=== PATIENT | female | born 2000 | race Caucasian/White ===

== ENCOUNTER 2025-02-16 10:43 | Outpatient (AMB) | payer BC, SELFPAY ==
--- OUTSIDE RECORDS SUMMARY | 2025-02-07 10:15 | XMS_ITS ---
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
--- NOTE | 2025-02-16 10:44 | MHC.OFFVIS ---
Vital Signs 02/16/25 10:47 Height 5 ft 4 in Weight 245 lb 13.047 oz BMI 42.2 BP 122/80 Blood Pressure Location Lt brachial Position Sitting Pulse 88 Pulse Source Pulse Oximeter Pulse Oximetry (%) 99 Oxygen Delivery Method Room Air Intake Visit Reasons: Sleep apnea Washer Off Required: No Accompanied by: Self / Same As Patient Allergies doxycycline Allergy (Intermediate, Verified 02/16/25 10:48) Hives HPI Comments Details: The patient is here for pulmonary evaluation. The patient is a 24 year woman presenting with significant daytime drowsiness and headaches. The patient was in his usual state health until back in September when his symptoms got worse. She did have a elevated Dexter score of 11/24. Significant headaches. Moderate severity. Typically in the morning. In addition to that she had been noticing increased breathlessness with increased heart rate. The patient was referred to outpatient pulmonary. The patient did have a home sleep study. She did have significant sleep apnea. She did have a hard time with a home sleep study that did feel like she slept much. Still had a AHI of approximately 14 events an hour. The patient also had significant hypoxia down to 88% for more than 20 minutes and she went as low as 80%. And she also had elevated heart rate up to 112 beats per minute with an average of 92 which is significantly high for the average while we are sleeping. At this point the patient does have significant symptoms and needs to start APAP therapy soon. She was referred to us to we can expedite the process. Right now I did call to a local [employer] company in order to do so. She will start APAP as soon as possible. She will return in 3-4 months to see her progress. If he has any questions or concerns while she is getting used to the APAP she can always call so we can address any issues. In the meantime we did go for brief walking oximetry the heart rate did elevate to about 108 beats per minute with minimal activity. Oxygen was stable. Her breath sounds are normal. Will see how she response to APAP therapy. If she continues to be symptomatic with shortness of breath and tachycardia she can always call so we can address those symptoms earlier. [facility] Medical History (Updated 02/16/25 @ 11:21 by Pieter Reynolds MD) Dyspnea Tachycardia HUGO (obstructive sleep apnea) Social History (Updated 02/16/25 @ 10:50 by Rahel Chang CMA) Patient Tobacco Use Status: Never used Tobacco Review of Systems Const Reports daytime sleepiness, Reports difficulty sleeping, Reports headache(s), Reports snoring and Reports stops breathing during sleep Eyes Reports no additional complaints ENT Reports headache(s) Card Reports palpitations and Reports dyspnea on exertion Resp Reports dyspnea on exertion, Reports snoring and Denies wheezing GI Reports no additional complaints Skin/Breast Denies rash Neuro Reports no additional complaints and Reports headache(s) Endo Reports palpitations Ander/Lymph Reports no additional complaints Aller/Immun Denies wheezing Physical Exam Vital Signs: Last Vital Signs Pulse 88 02/16/25 10:47 BP 122/80 02/16/25 10:47 Pulse Ox 99 02/16/25 10:47 Oxygen Delivery Method Room Air 02/16/25 10:47 BMI result Body Mass Index 42.2 Const General: comfortable HEENT Head: Yes normocephalic Neck Neck: Yes supple Chest Chest palpation & inspection: normal inspection of the chest Resp Effort & Inspection: normal respiratory effort Auscultation: clear to auscultation bilaterally Cardio Rate: tachycardic Rhythm: regular rhythm Heart sounds: S1 normal heart sound present and S2 normal heart sound present GI Palpation (GI): Soft to palpation Skin General skin exam: no rashes or lesions noted Extrem General: Yes no clubbing, cyanosis or edema Assessment & Plan Assessment & Plan (1) HUGO (obstructive sleep apnea): Code(s): G47.33 - Obstructive sleep apnea (adult) (pediatric) Category: Medical (2) Tachycardia: Code(s): R00.0 - Tachycardia, unspecified Category: Medical (3) Dyspnea: Code(s): R06.00 - Dyspnea, unspecified Category: Medical Qualifiers: Dyspnea type: dyspnea on exertion Qualified Code(s): R06.09 - Other forms of dyspnea Plan Start APAP -Regional Reassess HR during the next visit and should call if it worsens or no better on while on the APAP F/U 3-4 months Coding Level of Care Code New Pt Level 4 (40017) Diagnoses HUGO (obstructive sleep apnea) G47.33 Tachycardia R00.0 Dyspnea on exertion R06.09 Dyspnea type: dyspnea on exertion Time Spent (min) 35
[2025-02-16 10:47] VITALS: BP 122/80; PULSE 88; O2SAT 99; BMI 42.2
--- OUTSIDE RECORDS SUMMARY | 2025-02-16 11:23 | XMS_ITS ---
[facility] Name [facility] Organization Unknown Allergies Allergen Reaction Severity Comment Documented Date Source Statu s DOXYCYCLINE RASH [facility]P Problems Problem Status Onset Date Problem Type Date of Resoluti on Source Increased body mass index active 2021-01-16 ProblemAct [facility]LPVP Migraine without aura active 2017-05-13 ProblemAct [facility]LPVP Irritable bowel syndrome active 2021-01-16 ProblemAct [facility]P Altered bowel function active 2020-01-16 ProblemAct [facility]P Gluten sensitivity active 2021-01-16 ProblemAct [facility]P Allergy to drug active 2018-07-[address] [facility]P Acne active ProblemAct [facility] Pityriasis rosea active 2022-07-15 ProblemAct C THLPVP Anxiety state active 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
--- OUTSIDE RECORDS SUMMARY | 2025-02-16 11:23 | XMS_ITS | Data Portability ---
Author Organization [place] - [facility], [facility] Address [address] [place] [address] Assessment Encounter Date Assessment Date Assessment LastModified by Organization Details LastModified Time 01/16/2021 01/16/2021 20 yo female ritesh espino nl Development, AG given, consented to Hep A vaccine but out of stock so will RTO 2 wks, declined Bexsero, -SCAD; BMI 91st% - diet/exercise, has made significant improvements in her diet and exercise regimen and has lost significant wt, no concern for eating disorder, has criminal intelligence specialist giving her help and sees GI as well; Gluten sensitivity vs celiac - had TTG of 7, seen by GI, opted to not get endoscopy and to try gf diet and feels MUCH better gf, h/a's stopped as well as loss of hair as well, will continue; IBS - as well, followed by GI, failed all meds tried, better with gf diet kcamera Not available 01/16/2021 16:41:56 03/05/2022 03/05/2022 21 yo female wit h nl Development, AG/VC given, will RTO shot only Hep A #2, +A, -SCD; BMI 95th% - diet/exercise, 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 mate did not help so stopped seeing her, now seeing blindstitch lapel padder and has been on supplements and told she had hypothyroidism (+FH same), getting repeat labs in Apr by blindstitch lapel padder; GI - gluten sensitivity vs celiac, hx TTG 7 and now <1 without gluten in diet, removal was definitely very helpful, also has dx IBS from GI and has new blindstitch lapel padder who has added iron/other supplements and she is feeling better overall; Fatigue - gets >8 hrs of sleep per night and still tired, told by celina low Fe and thyroid dz which could both affect energy, will f/u with celina for upcoming repeat labs and keep me updated; Abnl TSH - mildly elevated, +FH Farhat's, taking supplement for this from celina, has repeat labs soon and gave her list of TSH/free T4 and thyroid antibodies to be sure done as well; Acne - topical meds only, blindstitch lapel padder stopped her OCPs and now having mild acne back/chest, has upcoming labs for ?PCOS and discussed that Rx for PCOS is OCPs; Anemia - nl H/H but low ferritin, on iron supplement; Anxiety - restarted with her therapist; Transitioning - discussed that she will need Adult MD, will see her for f/u in 6 mths but she needs to start looking for Adult MD now kcamera Not available 03/05/2022 17:55:29 07/15/2022 07/15/2022 Pityriasis rosea - viral, sx care, expected course kcamera Not available 07/15/2022 18:21:59 Plan of Treatment Reminders Order Date Submit Date Provider Last Modified By Organization Details Last Modified Time Details Appointments None record ed. Lab None record ed. Referral None record ed. Procedures None record ed. Surgeries None record ed. Imaging None record ed. Medication Orders None record ed. Patient TargetsNo targets recorded. Patient Instructions Encounter Date Encounter Id Patient Instructions Last Modified By Organization Details Last Modified Time 01/16/2021 [id number] program - 5 fruits & veggies kcamera Not available 01/16/2021 14:24:16 [id number] program - 1 hour of exercise kcamera Not available 01/16/2021 14:24:16 patient health questionnaire depression assessment* kcamera Not available 01/16/2021 14:27:41 immunization: wh at you need to know kcamera Not available 01/16/2021 14:24:17 03/05/2022 [id number] program - 5 fruits & veggies kcamera Not available 03/05/2022 14:25:26 [id number] program - 1 hour of exercise kcamera Not available 03/05/2022 14:25:26 patient health questionnaire depression assessment* kcamera Not available 03/05/2022 14:30:21 immunization: wh at you need to know kcamera Not available 03/05/2022 14:25:26 We have mian del rio that it is now time for the patient to work on selecting a new adult medicine provider. [email or web address] Not available 03/04/2022 10:35:40 Reason for Referral None Reported. Results Created Date Observation Date Name Description Value Unit Range Abnormal Flag Note LastModifiedBy Organization Detail LastModifiedTime 01/17/20 21 01/16/2021 patie nt healt h quest ionna coleen depre ssion asses sment * PHQ-9 negati ve Not Available [facility] [address] [place] [address], [phone], 01/16/2021 13:00:11 03/05/20 22 03/05/2022 patie nt healt h quest ionna coleen depre ssion asses sment * PHQ-9 negati ve Not Available [address], [phone], 03/04/2022 10:35:58 Result Notes None recorded. Problems Name Problem SNOMED Code Status Onset Date Resolution Date Notes Provider Name and Address Organization Details Recorded Time Active or passive immuniza tion Completed 04/17/2013 Rimma Riley MD [address] [place] [address], [phone], [facility] 6 10:30:04 Administ ration of diphther ia, pertussi s, and tetanus vaccine Completed 04/17/2013 Rimma Riley MD [address] [place] [address], [phone], [facility] 6 10:30:04 Pneumoni a [id number] Completed 04/17/2013 Rimma Riley MD [address] [place] [address], [address], [facility] 6 10:30:03 Foot pain 01488092 Completed 11/23/2013 Rimma Riley MD [address] [place] [address], [address], [facility] 6 10:30:03 Upper respirat ory infectio n 83986278 Completed 11/23/2013 Rimma Riley MD [address] [facility] [place], [address], [facility] 6 10:30:03 Sinusiti s 88982267 Completed 11/23/2013 Rimma Riley MD [address] [place], [address], [facility] 6 10:30:03 Concussi on Completed 11/23/2013 Rimma Riley MD [address], 3, [facility] 6 10:30:03 Renal impairme nt 943283320 Completed 05/08/2014 Rimma Riley MD [address] [place], [address], [facility] 6 10:30:03 Upper respirat ory infectio n 11423117 Completed 05/08/2014 Rimma Riley MD [address] [place], [address], [facility] 6 10:30:03 Pneumoni a 756043390 Completed 05/13/2015 Rimma Rliey MD [address] [place], [address], [facility] 6 10:30:03 Foot pain 63707462 Completed 05/13/2015 Rimma Riley MD [address] [place], [place] [address] [place], [address], [facility] 6 10:30:03 Thumb injury 122919148 Completed 05/13/2015 Rimma Riley MD [address] [place] [address] [place], [address], [facility] 6 10:30:03 Excessiv e weight gain 625964773 Completed 10/14/2015 Rimma Riley MD [address] [place] [address] [place], [address], [facility] 6 10:30:04 Abnormal weight 52493312 Completed 05/18/2016 Rimma Riley MD [address] [place] [address] [place], [address], [facility] 6 09:22:21 Migraine without aura 79369444 Active 2016 improved with gf diet Amanda Johnson MD [address] [place] [address] [place], [address], [facility] 1 16:39:12 Allergy to drug 744788166 Active 2017 rash w/ brenday Rimma Riley MD [address] [place] [address] [place], [address], [facility] 8 19:18:45 Childhoo d obesity 542260369 Completed 201901/16/2021 Amanda Johnson MD [address] [place] [address] [place], [address], [facility] 1 16:38:39 Nausea 133682120 Completed 201901/16/2021 Amanda Johnson MD [address] [place] [address] [place], [address], [facility] 1 16:39:18 Loss of hair 354424336 Active 2019 improved when started gf diet Amanda Johnson MD [address] [place] [address] [place], [address], [facility] 1 16:39:00 Altered bowel function 20016872 Active 2019 both diarrhea/ constipat ion, ?IBS; possible celiac with TTG 7 02/2020, seeing GI - all sxs improved by going gluten free except constipat ion, added Linzess but no help; GF diet has helped the most 2020 Amanda Johnson MD [address] [place] [address] [address] [place], [address], [facility] 1 16:38:31 SARS-CoV -2 Completed 201901/16/2021 Amanda Johnson MD [address] [facility], [place], [address], [facility] 1 16:39:38 Irritabl e bowel syndrome 24099869 Active 2020 Amanda Johnson MD [address] [facility], [place], [address], [facility] 1 16:41:56 Gluten sensitiv ity 383299948 Active 2020 Amanda Johnson MD [address] [facility], [place], [address], [facility] 1 16:41:57 Increase d body mass index 41907092 Active 2020 Amanda Johnson MD [address] [facility], [place], [address], [facility] 1 16:42:01 Thor manning 86227046 Active 2021 Amanda Johnson MD [address] [facility], [place], [address], [facility] 2 14:26:52 Separati on anxiety 443361270 Completed 04/21/2012 Rimma Riley MD [address] [facility], [place], [address], [facility] 6 10:30:03 Eruption 969759328 Completed 200807/21/2009 Rimma Riley MD [address] [facility], [place], [address], [facility] 6 10:30:03 Viral disease 87243141 Completed 200807/21/2009 Rimma Riley MD [address] [place] [address], [place], [address], [facility] 6 10:30:03 Disorder of thyroid gland 37890690 Completed 06/29/2011 Rimma Riley MD [address] [facility], [place], [address], [facility] 6 10:30:03 Seborrhe a Completed 06/29/2011 Rimma Riley MD [address] [place], [address], [facility] 6 10:30:03 Thyroidi tis 78646683 Completed 05/08/2014 Rimma Riley MD [address] [place], [address], [facility] 6 10:30:03 Thyroidi tis 82006116 Completed 04/19/2012 Rimma Riley MD [facility] [place], [address], [facility] 6 10:30:03 Thyroidi tis 27370953 Completed 06/29/2011 Rimma Riley MD [address] [facility] [place], [address], [facility] 6 10:30:03 Allergic rhinitis 35173386 Completed 200804/21/2012 Rimma Riley MD [address] [place], [address], [facility] 6 10:30:03 Acute pharyngi tis 931791214 Completed 200607/21/2009 Rimma Riley MD [address] [place] [address] [place], [address], [facility] 6 10:30:03 Anxiety state 548144922 Active improved 01/2020 Amanda Johnson MD [address] [place], [address], [facility] 0 12:35:53 Anxiety state 334999787 Completed 06/29/2011 Amanda Johnson MD [address] [facility] [place], [address], [facility] 0 12:35:53 Impetigo 29838174 Completed 06/29/2011 Rimma Riley MD [address] [place], [place] [address], [address], [facility] 6 10:30:03 Precocio us sexual developm ent Completed 06/29/2011 Rimma Riley MD [facility] [place], [address], [facility] 6 10:30:03 Obesity 067772431 Completed 05/08/2014 Rimma Riley MD [address] [place], [place] [address], [address], [facility] 6 10:30:03 Acute sinusiti s 13566620 Completed 01/21/2012 Rimma Riley MD [address] [place] [address] [address] [place] [place], [address], [facility] 6 10:30:03 Acute upper respirat ory infectio n 07906779 Completed 200607/21/2009 Rimma Riley MD [address] [place] [address] [place], [address], [facility] 6 10:30:03 Acute conjunct ivitis 99473175 Completed 200807/21/2009 Rimma Riley MD [address] [place] [address] [place], [address], [facility] 6 10:30:03 Otalgia 58622340 Completed 06/29/2011 Rimma Riley MD [address] [place], [place] [address], [address], [facility] 6 10:30:03 Increase d body mass index 46796012 Completed 01/16/2020 Amanda Johnson MD [address] [place] [address] [address] [place], [address], [facility] 1 16:42:01 Abnormal weight gain 525771922 Completed 04/19/2012 Rimma Riley MD [address] [place] [address] [place], [address], [facility] 6 10:30:03 Abnormal weight gain 737348955 Completed 06/29/2011 Rimma Riley MD [address] [facility], [place], [address], [facility] 6 10:30:03 Acne 17182476 Active derm & BCPS 2016, stopped OCPs 01/2020 Amanda Johnson MD [address] [facility], [place], [address], [facility] 0 12:35:08 Vaginiti s and vulvovag initis Completed 06/29/2011 Rimma Riley MD [address] [facility], [place], [address], [facility] 6 10:30:03 Notes:BMI labs done 2015 * * HGb 2018 Problem Notes None recorded. Medical Equipment None Reported. Allergies Allergen ID Allergen Name Allergen Category Reaction Reaction Severity Criticality Documentation Date Start Date Code Code System Note Provider Name and Address Organization Details Recorded Time 30174 doxycycli ne Not available rash Not available Not available 12/11/2016 3640 RxNorm Rimma Riley MD [address] [facility], [place], [address], [facility] 7 17:26:33 Medications Name Sig Start Date Stop Date Status Note LastModified by Organization Details LastModified Time tretinoin 0.1 % topical cream 09/30 completed Not Available Not Available Not Available amoxicillin 500 mg capsule TAKE 1 C PO QAM AND QPM WITH FOOD 12/11 completed Not Available Not Available Not Available doxycycline hyclate 100 mg capsule TAKE 1 C PO QAM AND QPM WITH FOOD AND LARGE GLASS OF WATER DIRECTED 12/11 completed Not Available Not Available Not Available azithromyci n 250 mg tablet 2 tabs the 1st day then 1 tab each day for 4 days 02/18 completed Not Available Not Available Not Available tretinoin 0.025 % topical cream APPLY PEA SIZED AMOUNT TO FACE EVERY OTHER NIGHT FOR ACNE WORKING UP TO EVERY NIGHT TOLERATED FOLLOW WITH MOISTURIZ ER 05/22 completed Not Available Not Available Not Available tretinoin 0.05 % topical cream 09/30 completed Not Available Not Available Not Available sulfamethox azole 800 mg-trimetho prim 160 mg tablet TK 1 T PO Q 12 H FOR 10 DAYS 12/11 completed Not Available Not Available Not Available bupropion HCl SR 100 mg tablet,12 hr sustained-r elease active Not Available Not Available Not Available lidocaine-p rilocaine 2.5 %-2.5 % topical cream APPLY A THICK LAYER DIRECTED ONE HOUR AFTER VENAPUNCT URE active Not Available Not Available No t Available adapalene 0.1 % topical cream APPLY A PEA SIZED AMOUNT TO FACE FOR ACNE STARTING EVERY OTHER NIGHT WORKING UP TO EVERY NIGHT AT BEDTIME DISCONTIN UE IF YOU BECOME 03/31 completed Not Available Not Available Not Available amoxicillin 250 mg chewable tablet CHEW 2 TABLETS PO QAM AND QPM WITH FOOD 03/31 completed Not Available Not Available Not Available amoxicillin 875 mg tablet G ROX 1 T PO Q 12 H FOR 14 DAYS active Not Available Not Available No t Available amoxicillin 400 mg/5 mL oral suspension Take 2 tsp twice a day by oral route for 10 days. 07/23 completed Not Available Not Available Not Available mupirocin 2 % topical ointment Apply a small amount to the affected area by topical route 3 times per day active Not Available Not Available No t Available norethindro ne acetate 1 mg-ethinyl estradiol 20 mcg tablet TAKE 1 TABLET BY MOUTH EVERY DAY 03/05 completed Not Available Not Available Not Available Transderm-S engraver copperplate 1 mg over 3 days transdermal patch apply 1 patch q3 days prn; Start: >4h before event; do not cut patch 06/09 completed Not Available Not Available Not Available sumatriptan 20 mg/actuatio n nasal spray PLACE 1 SPRAY IN 1 NOSTRIL PRF MIGRAINE. MAY REPEAT IN 2 H IF NEEDED 11/06 completed Not Available Not Available Not Available Zoloft 25 mg tablet Take 1 tablet every day by oral route. active Not Available Not Available No t Available cefdinir 300 mg capsule 06/11 completed Not Available Not Available Not Available sertraline 50 mg tablet TAKE 1 AND TABLETS PO QD active Not Available Not Available No t Available dicyclomine 10 mg capsule TK 1 C PO TID PRN 03/05 completed Not Available Not Available Not Available Augmentin 500 mg-125 mg tablet Take 1 tablet 3 times a day by oral route for 10 days. 2010 active Not Available Not Available Not Avai lable clindamycin 1 % lotion APPLY TOPICALLY TO CHEST QAM AND QPM FOR OUTBREAKS 12/11 completed Not Available Not Available Not Available bupropion HCl XL 150 mg 24 hr tablet, extended release active Not Available Not Available Not Available Tri-Sprinte c (28) 0.18 mg(7)/0.215 mg(7)/0.25 mg(7)-0.035 mg tablet Take 1 tablet every day by oral route for 28 days. 01/15 completed Not Available Not Available Not Available Zoloft 75 mg per day active Not Available Not Available No t Available multivitami n active QD Not Available Not Available Not Available clindamycin 1.2 % (1 % base)-benzo yl peroxide 5 % topical gel LILLIAN A PEA SIZED AMOUNT TO FACE QAM FOR ACNE. MAY STAIN CLOTHING 09/30 completed Not Available Not Available Not Available Ludent Fluoride 1 mg fluoride (2.2 mg sodium fluoride) chewable tablet TK 1 T PO QD 12/11 completed Not Available Not Available Not Available Lo Loestrin Fe 1 mg-10 mcg (24)/10 mcg (2) tablet 01/15 completed Not Available Not Available Not Available Ovace Plus 9.8 % lotion 03/31 completed Not Available Not Available Not Available Finacea 15 % topical foam 09/30 completed Not Available Not Available Not Available Flucelvax Quad (PF) 60 mcg (15 mcg x 4)/0.5 mL IM syringe ADM 0.5ML IM UTD 01/16 completed Not Available Not Available Not Available Vitals Date Recorded Body height Body mass index (BMI) Body mass index (BMI) [Percentile] Per age and sex Body weight Systolic And Diastolic Provider Name and Address Organization Details Last Updated DateTime 01/16/2021 162.56 cm 28.7 kg/m2 91 % 80507.6 4 g 106/64 mm[Hg] Juliet Harrison R.N. [place] - [facility] 14:07:08 Date Recorded Body height Systolic And Diastolic Provider Name and Address Organization Details Last Updated DateTime 03/05/2022 162.56 cm 112/70 mm[Hg] Renetta De Leon R.N. [facility] 03/05/2022 14:01:30 Date Recorded Body mass index (BMI) Body mass index (BMI) [Percentile] Per age and sex Body weight Provider Name and Address Organization Details Last Updated DateTime 03/05/2022 32.4 kg/m2 95 % 58145.96 g Yamilex Giron R.N. [facility] 03/05/2022 14:09:17 Social History Question Answer Notes LastModified by Organizat ion Details LastModified Time Tobacco Smoking Status Never Smoker Heathermitchel Duffycammy hunt [facility] 09/01/2012 16:32:55 Have There Been Any Changes To Your Family Or Social Situation? No Information not available 05/26/2017 Hard Of Hearing Or Deaf In One Or Both Ears? No Information not available 05/26/2017 Legally Blind In One Or Both Eyes? No Information not available 05/26/2017 Parent's Marital Status 05 Information not available 06/14/2011 Home Situation Mother --and Step Dad 05 Information not available 06/14/2011 Siblings Renetta (F 1/2 Sib) 01/05/10 05 Information not available 06/14/2011 Year In School College College [facility] Studies Major fall Information not available 01/16/2021 Parent's Name Yuliya Wright --mom Works At Home 05 Information not available 06/14/2011 Parent's Name Toan Nunez Sees Dad Weekly & Weekends (has Friend Who Lives W/him ) 05 Information not available 06/14/2011 DSS/DCF Custody No Information not available 05/26/2017 What Was The Date Of Your Most Recent Tobacco Screening? 09/30/2018 Information not available 03/03/2019 Are You Passively Exposed To Smoke? No [email or web address] Information not available 05/12/2014 Have You Recently Traveled Abroad? No Information not available 01/16/2021 Sex: Unknown Functional Status Question Answer Note LastModified by Organizat ion Details LastModified Time Do you use any illicit or recreational drugs? No Information not available 05/26/2017 Mental Status None recorded. Family History Relationship Description Onset Age of this Age Resolved Age Notes LastModified by Organization Details LastModified Time Mother Autoimmune disease hypoth yroid (previ ously record ed as Thyroi d or other Autoim mune Diseas es) [email or web address] Not available 08/17/2015 13:47:48 Mother Allergy previo usly record ed as Allerg ies [email or web address] Not available 08/17/2015 13:47:48 Father Hypercholest erolemia previo usly record ed as Elevat ed Choles terol [email or web address] Not available 08/17/2015 13:47:48 Maternal Grandmother Heart disease [email or web address] Not available 2015 13:47:48 Maternal Grandmother Disorder of thyroid gland Hypoth yroid [email or web address] Not available 08/17/2015 13:47:48 Notes:updated 02/28 Medical History Condition Response CARDIAC PROBLEMS N ALLERGIC AND IMMUNOLOGIC PROBLEMS Y DEVELOPMENTAL/ BEHAVIORAL PROBLEMS N GENITOURINARY N HOSPITALIZATIONS N ACCIDENTS INJURIES Y VISION IMPAIRMENT N ENDOCRINE PROBLEMS/DIABETES Y GI PROBLEMS/CONSTIPATION Y OPHTHALMOLOGIC PROBLEMS N ORTHOPEDIC PROBLEMS N CHICKEN POX / VARICELLA HISTORY or POSIT BRAYAN TITER N HEARING IMPAIRMENT N MUSCLE/ JOINT/ BONE PROBLEMS N RHEUMATOLOGIC PROBLEMS N DERMATOLOGIC PROBLEMS/ECZEMA Y ENT PROBLEMS/OTITIS MEDIA/ CHRONIC N GEOPHYSICAL COMPUTER PROBLEMS Y HEMATOLOGIC /ONCOLOGIC PROBLEMS N RENAL PROBLEMS N OTHER Y NEUROLOGIC/ SEIZURES OR CONVULSIONS N ADHD N HEADACHES/MIGRAINES/DIZZINESS Y CONGENITAL AND GENETIC PROBLEMS N INFECTIOUS DISEASE PROBLEMS N PUMONARY PROBLEMS/ ASTHMA N PSYCH PROBLEMS Y Gynecological History Statement/Question Response BCPs Date of LMP 02/26/2022 Age at onset of periods 02/201105/14/2016 Obstetrics History GPAL:G 0 P 0 0 0 0 Immunizations Vaccine Type Date Status Note Provider Name and Address Organization Details Recorded Time Influenza, live, trivalent, intranasal 04/17/20 11 completed Not Available [facility] 08/27/2019 02:35:10 Novel [id number] , nasal 07/12/20 09 completed Not Available [facility] 08/27/2019 02:34:48 Influenza, live, trivalent, intranasal 04/21/20 12 completed Not Available [facility] 08/27/2019 02:35:29 varicella 05/02/20 08 completed Not Available [facility] 06/14/2011 03:16:44 Influenza, split virus, trivalent, preservative 07/24/20 09 completed Not Available [facility] 08/27/2019 02:34:45 meningococcal [id number] 03/03/20 13 completed Not Available [facility] 08/27/2019 02:33:33 Tdap 03/03/20 13 completed Not Available [facility] 08/27/2019 02:33:46 Influenza, live, quadrivalent, intranasal 07/15/20 13 completed Not Available [facility] 08/27/2019 02:35:34 Novel [id number] , nasal 08/13/19 10 completed Not Available [facility] 08/27/2019 02:34:49 HPV, quadrivalent 12/30/19 14 completed Not Available [facility] 08/27/2019 02:34:12 HPV, quadrivalent 03/02/20 14 completed Not Available Pending sale to [facility] 08/27/2019 02:34:13 Influenza, live, quadrivalent, intranasal 06/13/20 14 completed Not Available [facility] 08/27/2019 02:35:51 HPV, quadrivalent 07/04/20 14 completed Not Available [facility] [facility] 08/27/2019 02:34:15 Influenza, live, quadrivalent, intranasal 05/16/20 15 completed Not Available Pending sale to [facility] 08/27/2019 02:36:17 Influenza, split virus, quadrivalent, PF 05/22/20 16 completed Not Available Pending sale to [facility] 08/27/2019 02:37:08 COVID-19, mRNA, LNP-S, PF, 30 mcg/0.3 mL dose 10/23/19 21 completed Edson Diaz [facility] 01/16/2021 14:12:49 COVID-19, mRNA, LNP-S, PF, 30 mcg/0.3 mL dose 11/13/19 21 completed Edson Diaz [facility] 01/16/2021 14:13:09 meningococcal MCV4P 06/11/20 17 completed Not Available Pending sale to [facility] 08/27/2019 02:37:44 Influenza, split virus, quadrivalent, PF 06/11/20 17 completed Not Available [facility] 08/27/2019 02:37:56 Influenza, split virus, quadrivalent, PF 07/29/20 18 completed Not Available [facility] 08/27/2019 02:39:04 influenza, unspecified formulation 05/08/20 09 completed Not Available [facility] 06/14/2011 03:17:07 Influenza, split virus, quadrivalent, PF 05/28/20 19 completed Not Available [facility] 08/27/2019 02:39:11 Hep A, ped/adol, 2 dose 01/16/20 20 cancelled patient objection Amanda Johnson MD [address] [place] [address], , [facility] 01/16/2020 09:03:47 meningococcal B, OMV 01/16/20 20 cancelled patient objection Amanda Johnson MD [address] [place] [address], , [facility] 01/16/2020 09:03:47 Hep A, adult 01/17/20 21 cancelled patient objection Amanda Johnson MD [address] [place] [address], , [facility] 01/16/2021 14:24:17 meningococcal B, OMV 01/17/20 21 cancelled patient objection Amanda Johnson MD [address] [place] [address], , [facility] 01/16/2021 14:24:17 Hep A, adult 03/19/20 21 completed YAMILEX CANTU MD [address] [place] [address], , [facility] 03/21/2021 09:14:06 Hep A, adult 03/05/20 22 cancelled patient objection Amanda Johnson MD [address] [place] [address], , [facility] 03/05/2022 17:53:48 meningococcal B, OMV 03/05/20 22 cancelled patient objection Amanda Johnson MD [address] [place] [address], , [facility] 03/05/2022 17:53:48 Hep A, adult 03/17/20 22 [facility]/17/[facility]22 08:37:04 varicella 04/05/20 02 completed Not Available Pending sale to [facility] 06/14/2011 03:17:38 MMR 07/14/20 02 completed Not Available [facility] 06/14/2011 03:17:38 MMR 04/07/20 05 completed Not Available [facility] 06/14/2011 03:17:38 DTaP, unspecified formulation 06/02/20 01 completed Not Available [facility] 06/14/2011 03:17:38 DTaP, unspecified formulation 08/06/20 01 completed Not Available Pending sale to [facility] 06/14/2011 03:17:38 DTaP, unspecified formulation 10/05/19 02 completed Not Available [facility] 06/14/2011 03:17:38 DTaP, unspecified formulation 10/07/19 03 completed Not Available [facility] 06/14/2011 03:17:38 DTaP, unspecified formulation 04/01/20 06 completed Not Available [facility] 06/14/2011 03:17:38 Hib, unspecified formulation 08/06/20 01 completed Not Available [facility] 06/14/2011 03:17:38 Hib, unspecified formulation 10/05/19 02 completed Not Available [facility] 06/14/2011 03:17:38 Hib, unspecified formulation 07/14/20 02 completed Not Available [facility] 06/14/2011 03:17:38 IPV 06/02/20 01 completed Not Available [facility] 06/14/2011 03:17:38 IPV 08/06/20 01 completed Not Available [facility] 06/14/2011 03:17:38 IPV 10/07/19 03 completed Not Available [facility] 06/14/2011 03:17:38 IPV 04/01/20 06 completed Not Available [facility] 06/14/2011 03:17:38 Hib, unspecified formulation 06/02/20 01 completed Not Available [facility] 06/14/2011 03:17:38 pneumococcal conjugate PCV 7 06/02/20 01 completed Not Available [facility] 06/14/2011 03:17:38 pneumococcal conjugate PCV 7 08/06/20 01 completed Not Available [facility] 06/14/2011 03:17:38 pneumococcal conjugate PCV 7 10/05/19 02 completed Not Available [facility] 06/14/2011 03:17:38 pneumococcal conjugate PCV 7 04/06/20 03 completed Not Available [facility] 06/14/2011 03:17:38 Hep B, unspecified formulation 05/10/20 01 completed Not Available [facility] 06/14/2011 03:17:38 Hep B, unspecified formulation 04/07/20 01 completed Not Available [facility] 06/14/2011 03:17:38 Hep B, unspecified formulation 01/06/20 02 completed Not Available [facility] 06/14/2011 03:17:38 Influenza, live, trivalent, intranasal 06/13/20 10 completed Not Available Pending sale to [facility] 08/27/2019 02:35:02 Past Encounters Encounter ID Performer Location Encounter Start Date Encounter Closed Date Diagnosis/Indication Diagnosis SNOMED-CT Code Diagnosis ICD10 Code Diagnosis Note [id number] Rimma Riley MD [address] [address] 04/09/2007 15:11:03 04/09/2007 15:47:09 [id number] Saleem Ochoa MD [facility] [address] [place] [address] 4 07/29/2007 09:00:24 07/29/2007 09:18:28 [id number] Rimma Riley MD [facility] [address] [place] [address] 4 07/31/2007 09:49:37 07/31/2007 10:36:21 [id number] Rimma Riley MD [facility] [address] [place] [address] 4 09/22/2007 09:32:36 09/22/2007 10:24:10 [id number] Rimma Riley MD [facility] [address] [place] [address] 4 05/02/2008 11:21:11 05/02/2008 12:46:55 [id number] Rimma Riley MD [facility] [address] [place] [address] 4 11/14/2008 09:11:52 11/14/2008 09:46:19 [id number] Marcellus Tijerina MD [facility] [address] [place] [address] 01/26/2009 09:35:51 01/26/2009 09:58:20 [id number] Rimma Riley MD [facility] [address] [place] [address] 05/08/2009 15:48:34 05/08/2009 17:02:28 [id number] Rimma Riley MD [facility] [address] [place] [address] 07/24/2009 14:21:29 07/24/2009 17:48:19 [id number] Rimma Riley MD [facility] [address] [place] [address] 10/24/2009 16:12:12 10/24/2009 17:06:36 [id number] Rimma Riley MD [facility] [address] [place] [address] 12/13/2009 13:32:36 12/13/2009 15:24:07 [id number] Rimma Riley MD [facility] [address] [place] [address] 4 02/19/2010 13:31:43 02/19/2010 14:27:19 [id number] Rimma Riley MD [facility] [address] [place] [address] 04/09/2010 14:44:25 04/09/2010 16:20:23 [id number] Rimma Riley MD [facility] [address] [place] [address] 06/13/2010 14:17:39 06/13/2010 15:01:55 [id number] Rimma Riley MD [facility] [address] [place] [address] 4 08/13/2010 10:17:42 08/13/2010 11:29:29 [id number] Rimma Riley MD [facility] [address] [place] [address] 4 11/19/2010 14:25:39 11/19/2010 16:34:25 [id number] Rimma Riley MD [facility] [address] [place] [address] 02/17/2011 14:09:33 02/17/2011 15:00:05 [id number] Rimma Riley MD [facility] [address] [place] [address] 04/17/2011 15:45:36 04/17/2011 17:53:43 [id number] Rimma Riley MD [facility] [address] [place] [address] 04/29/2011 14:33:15 04/29/2011 16:22:19 [id number] María Fox MD [facility] [address] [place] [address] 07/13/2011 08:35:50 07/13/2011 08:49:47 [id number] Rimma Riley MD [facility] [address] [place] [address] 4 07/17/2011 15:51:18 07/17/2011 17:04:19 [id number] Rimma Riley MD [facility] [address] [place] [address] 4 10/15/2011 15:48:34 10/15/2011 17:15:18 [id number] Vandana COTTON APRN, PhD [place] [address] 2 11/25/2011 15:17:43 11/25/2011 16:26:59 [id number] Vandana COTTON APRN, PhD [place] [address] 2 01/13/2012 16:23:02 01/13/2012 17:00:44 [id number] Rimma Riley MD [facility] [address] [place] [address] 01/21/2012 14:32:16 01/21/2012 15:28:22 [id number] Vandana COTTON, MIDDLE [employer]CHOOL ASSISTANT PRINCIPAL, PhD [place] [id number] 2 03/08/2012 16:21:47 03/08/2012 17:35:26 [id number] Rim[facility] Riley MD [facility] [address] [place] [address] 4 04/21/2012 14:18:37 04/21/2012 16:27:54 [id number] Vandana COTTON, MIDDLE SCHOOL ASSISTANT PRINCIPAL, PhD [place] [address] 2 06/21/2012 16:19:36 06/21/2012 17:06:21 [id number] Vandana COTTON, MIDDLE SCHOOL ASSISTANT PRINCIPAL, PhD [place] [id number] 2 08/17/2012 14:51:20 08/17/2012 16:02:29 [id number] Rimma Riley MD [address] [address] 09/01/2012 16:21:58 09/01/2012 17:09:10 [id number] Vandana COTTON MIDD[employer] SCHOOL ASSISTANT PRINCIPAL, PhD [place] [address] 2 10/12/2012 14:11:54 10/12/2012 15:16:34 [id number] Vandana COTTON MIDD[employer] SCHOOL ASSISTANT PRINCIPAL, PhD [place] [address] 2 11/16/2012 14:59:01 11/17/2012 08:46:47 [id number] Rimma Riley MD [address] [address] 12/01/2012 13:51:58 12/01/2012 14:44:11 [id number] Vandana COTTON [employer] SCHOOL ASSISTANT PRINCIPAL, PhD [place] [address] 2 12/28/2012 15:00:43 12/28/2012 16:56:02 [id number] Rimma Riley MD [address] [address] 4 03/03/2013 13:53:43 03/03/2013 14:42:20 Active or passive immunization [id number] Administra tion of diphtheria, pertussis, and tetanus vaccine 053272129 Shot only Tdap [id number] Saleem Ochoa MD [facility] [address] 04/05/2013 10:52:25 04/05/2013 11:30:23 Pneumonia 216836530 [id number] Rimma Riley MD [address] [address] 4 04/20/2013 14:10:55 04/20/2013 17:21:45 Well child [id number] Will return for HPV w/friend Acne 22980321 looks go od today Anxiety state 079255704 Needle phobia-is better-had hypnothera py-didn't help much-on wait list for therapist (Myra Wilhelm) Increased body mass index 36918911 weight has increased over the past 5 months-dinah l check labs and see nutrition- will f/u after that. Goal is BMI < 25 Foot pain 24993161 mildl y tender dorsum foot-NOT ankle area. Doubt was ankle sprain. No redness. Will d/c brace-acti vities as tolerated. [id number] Saleem Ochoa MD [address] [address] 4 06/12/2013 11:54:29 06/12/2013 12:20:12 Upper respiratory infection 13427719 [id number] Saleem Ochoa MD [address] [address] 4 06/21/2013 13:20:35 06/21/2013 13:56:26 Upper respiratory infection 81713056 [id number] Roger Dill MD [address] [address] 4 07/15/2013 15:33:37 07/15/2013 15:52:10 Influenza vaccine needed 6616451615 [id number] Roger Dill MD [address] [address] 4 07/22/2013 15:26:40 07/22/2013 16:43:22 [id number] Rimma Riley MD [address] [address] 4 08/14/2013 11:22:43 08/14/2013 11:48:05 Sinusitis 35707920 [id number] Amanda Johnson MD [facility] [address] [address] 09/15/2013 10:24:47 09/15/2013 11:40:42 Concussion 20140695 [id number] Amanda Johnson MD [facility] [address] [address] 4 09/21/2013 13:41:33 09/21/2013 15:26:12 Concussion 93783244 [id number] Rimma Riley MD [facility] [address] [address] 4 10/12/2013 08:44:04 10/12/2013 09:33:46 Concussion 43932799 [id number] Rimma Riley MD [facility] [address] [address] 4 11/02/2013 14:46:12 11/02/2013 15:33:18 Concussion 13662998 now almost 2 months out-CGS=12 (was 19 at last visit ) able to attend school 1/2 days-almos t a full day yesterday. Will eat lunch @ nurses office to -try to extend the day-if not 100% in 3 weeks follow up.Did also start Zoloft recently for anxiety issues-? contributi ng to her continued symptoms? Will discuss w/PNP at next visit. F/u here in 3 weeks if not 100%. Did school accommodat ion form. [id number] mAanda Johnson MD [facility] [address] [address] 12/29/2013 15:42:28 12/29/2013 16:14:33 Administration of viral vaccine 05894021 Shot only HPV [id number] Saleem Ochoa MD [facility] [address] [address] 4 03/02/2014 09:39:15 03/02/2014 09:58:13 Administration of viral vaccine 13339995 Shot only HPV [id number] Saleem Pittman MD [address] [address] 05/06/2014 10:23:36 05/06/2014 11:18:42 Upper respiratory infection 82390565 [id number] Rimma Riley MD [address] [address] 4 05/12/2014 14:59:41 05/12/2014 17:30:28 Well child 855504203 will get U/A and creat done in a few months Anxiety state 502611462 Sees Myra S q o week-start ed 07/22-and Florencia Nickerson for medication -on Zoloft (? dose) x 6 months-nee dle phobia resolved w/shots and better w/labs. GAS better Childhood obesity 826897062 Weight now up again- just had nl labs. .Mom saw nutrtion 2011- as well as weight managemnet 2007- wants to follow at home-feels lost weight recently. Pneumonia 101690514 seen 6 days ago- afebrile & exam at that time wnl-then had fever x 4 days-last was yesterday am-not since-stil l w/cough-no w rales on exam-will treat-f/u if cough not improving over the next 5-7 days sooner prn [id number] Amanda Johnson MD [address] [address] 4 06/14/2014 14:26:36 06/14/2014 15:21:54 Foot pain 43679372 [id number] Roger Dill MD [address] [address] 4 07/04/2014 14:23:48 07/04/2014 14:58:01 Administration of viral vaccine 75593378 Shot only HPV [id number] Amanda Johnson MD [address] [address] 4 11/01/2014 16:29:08 11/01/2014 16:55:14 Thumb injury 472563262 [id number] Rimma Riley MD [address] [address] 4 05/16/2015 15:56:31 05/16/2015 17:00:13 Active or passive immunization 096181993 Z23 Well child 528330100 Z00 .129 will get U/A and creat done in a few months Increased body mass index 74299788 E66.9 BMI continues to increase-n ow > 97%- did not like weight management clinic-dinah skinner recheck labs & check for PCOS--will d/c all calorie drinks-robert ch intake-wor k on fruits and veggies-f/ u in 1 month Anxiety state 936412794 F41.1 Sees Myra S q month and Florencia Nickerson for medication -on Zoloft & welbutrin ( ? dosage )- doing well-mom to call w/dosage. [id number] Rimma Riley MD [address] [address] 08/17/2015 13:35:31 08/17/2015 15:25:48 Excessive weight gain 956413714 R63.5 excellent weight control-no gain over the past 3months even w/the holidays-h lauro to eat out less than 2 times a week chol done-reche ck next year f/u in 2 months [id number] Rimma Riley MD [address] [address] 4 10/17/2015 16:01:59 10/17/2015 16:50:35 Abnormal weight 76489115 R63.5 BMI stable-but weight increased a few lbs since last visit-Rox is now exercising !!! She will work on healthy eating at her dad's house (this may have been a factor not shared w/us) not have a cookie at lunch. Will aim for decreased weight at next visit. F/u in 2 months [id number] Saleem Ochoa MD [address] [address] 02/05/2016 16:21:36 02/05/2016 17:03:59 Upper respiratory infection 44885517 J06.9 Serous otitis media 8032 7007 H65.01 [id number] Rimma Riley MD [address] [address] 4 02/19/2016 11:42:29 02/19/2016 15:30:36 Dysfunction of eustachian tube 55283690 H69.91 [id number] Rimma Riley MD [facility] [address] [address] 05/22/2016 14:49:29 05/22/2016 16:07:08 Well child 567259446 Z00.129 Administra tion of influenza vaccine 00346201 Z23 Acne 16149600 L70.9 followed by dermatolog y-on topicals-s kin looks great-next appt in a few months Anxiety state 209160243 F41.1 Sees Myra S q month was -on Zoloft & welbutrin -stopped meds approx 1 year-feels like she is doing well Increased body mass index 89512926 E66.9 BMI continues to increase > 95%-will start Lose It Lillian-limit to 1500 cals- work on exercise-f /u in 2 monthsChec k BMI labs in a few months ( last done 07/24 ) Folliculitis 05308603 L7 3.9 lesions on chest x 1 months-ini tially pustules-w ill start bactrim-if not better in 1 week will f/u-if any new lesions will f/u sooner [id number] Rimma Riley MD [facility] [address] 12/11/2016 17:06:46 12/11/2016 18:05:03 Itching of skin 368318148 L29.9 [id number] Rimma Riley MD [address] [address] 03/31/2017 13:16:16 03/31/2017 14:46:44 Headache 61494446 R51 It appears that Rox has had Migraines w/ car sickness-n ow having them not associated w/ motion. Also getting some tension HAs. Exam wnl. Gave MOORE info sheet. Will keep a good record of HAs-start migrelief 1 tab po bid. Can use bonine for motion sickness and excedrin migraine for the severe HAs but no more than 2 times a week. Will f/u in 6 weeks. [id number] Rimma Riley MD [address] [address] 05/13/2017 13:55:41 05/13/2017 14:53:26 Migraine without aura 57843903 G43.009 had 4 migraines last month-exce drin migraine really helped. on migrelief bid. Rox is happy with this. Also with a few tension HAs. Will continue hydration and adequate sleep. F/u at [facility] in a few weeks then will f/u in 2-3 months after that. [id number] Rimma Riley MD [facility] [address] [place] [address] 05/26/2017 13:16:33 05/26/2017 15:40:24 Well child 332765966 Z00.129 will defer immunizati ons today since going to work after exam- give at next appt for BCPS or MOORE recheck Childhood obesity 664730 003 Z68.54 BMI still > 95% but decreasing -will continue healthy eating and work on exercise-w ill f/u at next WC-sooner if increasing . Labs done last year and wnl Acne 97706817 L70.9 followed by dermatolog y-on topicals- duac- & cefdinir-d ermatology wants off oral medication -will consider BCPS vs accutane Anxiety state 980304734 F41.1 Sees Myra Gentile q month was -on Zoloft & welbutrin -stopped meds approx 2 year-feels like she is doing well Migraine without aura 56 338727 G43.009 -Excedrin migraine really helps & on migrelief bid. No Migraines since last visit 2 weeks ago. Rox is happy with this. Also with a few tension HAs. Will continue hydration and adequate sleep. Will f/u in 2-3 months [id number] MD KULWINDER [facility] [place] [address] 06/11/2017 12:43:23 06/11/2017 16:16:50 Active or passive immunization 684858414 Z23 Acne 16234116 L70.9 followed by dermatolog y-on topicals- duac bid now and off oral antibiotic s. Will start BCPS now. No contraindi cations. INfo sheet reviewed. Will start w/ next menses. Not SA Urine PCR 2nd to insurance requiremen ts. F/u in 3 months. [id number] Amanda Johnson MD [address] [address] 06/22/2017 09:24:40 06/22/2017 12:20:49 Tick bite 82525536 S00.96XA [id number] Rimma Riley MD [address] [address] 09/11/2017 15:54:38 09/11/2017 17:31:54 Migraine without aura 82145145 G43.009 migraines ae less frequent and excedrin migraine doesn't work. Is off migrelief now. Will continue hydration and adequate sleep. Will try imitrex for next migraine Acne 18902692 L70.9 Had been followed by dermatolog y-last visit 04/2017. Stopped topicals & now on BCPS x 3 months and doing well. Restart duac. Will f/u w/ derm. Continue BCPS and f/u at next [facility]. [id number] Mony Sousaceasar, [address] [address] 07/29/2018 15:21:22 07/29/2018 15:36:07 Active or passive immunization 458373525 Z23 [id number] Rimma Riley MD [address] [address] 4 09/30/2018 09:55:20 09/30/2018 12:19:42 Well child 123824922 Z00.129 ? meningitis B at f/u visit- check urine PCR then Childhood obesity 488053 003 Z68.54 BMI increasing -will work on weight loss- Rox is motivated hates to have bloodwork done-- will hold off on BMI labs as long as she is decreasing ( at least 5 lbs ) over the next few months. Acne 50410212 L70.9 Had been followed by dermatolog y- last visit 05/27- needs f/u appt- stopped using topicals because irritating skin. Still on BCPs. Anxiety state 778508580 F41.1 Sees Myra Gentile q month was -on Zoloft & welbutrin -stopped meds approx 3 year-feels like she is doing well Migraine without aura 56 356938 G43.009 Migraines are less frequent- knows triggers- godinez or garlic and junk food without healthy food. Imitrex did work. Last was months ago. [id number] Mony Garner, [address] [address] 06/09/2019 15:33:10 06/09/2019 16:31:59 Headache 02329503 R51 Fatigue 21679124 R53.83 Anxiety 33790963 F41.9 [id number] Amanda Johnson MD [address] [address] 11/07/2019 09:15:42 11/07/2019 14:32:04 Headache 70569686 R51 Otalgia 29306887 H92.01 [id number] Amanda Johnson MD [address] [address] 01/16/2020 08:12:14 01/16/2020 12:37:44 Well child 891763557 Z00.129 Childhood obesity 045671 003 Z68.54 Active or passive immunization 052022925 Z23 Anxiety state 158758437 F41.1 Migraine without aura 56 877794 G43.009 Acne 70423328 L70.9 Nausea 606726240 R11.0 Loss of hair 854820195 L 65.9 Altered tiana wel function 91618879 R19.4 [id number] María Fox MD [address] [address] 03/09/2020 10:13:32 03/09/2020 15:44:17 Contact dermatitis 10198577 L25.9 OTC and keep record of what contacts she has had ? plant resinsx tx reassuranc e and f/u PRN Bee sting 394415071 T63. 91XA L hand and appears to be resolving [id number] Batsheva Matias MD [address] [address] 4 06/08/2020 10:16:59 06/08/2020 13:38:51 Diarrhea 46333584 R19.7 SARS-CoV-2 816219260 U07 .1 Acute laryngitis 1037421 J04.0 [id number] Amanda Johnson MD [address] [address] 4 01/16/2021 13:58:39 01/16/2021 17:17:55 Active or passive immunization 070660978 Z23 Adult heal th examination 645747631 Z00.00 Diet education 13372525 Z71.3 Exercises education, guidance, and counseling 850231206 Z71.82 Increased body mass index 06486922 E66.3 Gluten sensitivity 54301 1003 K90.41 Irritable bowel syndrome 74575234 K58.9 [id number] YAMILEX CANTU MD [address] [address] 4 03/19/2021 08:15:23 03/19/2021 08:24:57 Active or passive immunization 702666640 Z23 [id number] Amanda Johnson MD [address] [address] 4 03/05/2022 13:49:20 03/05/2022 16:13:14 Active or passive immunization 398918479 Z23 Adult heal th examination 096516311 Z00.00 Diet education 50491127 Z71.3 Exercises education, guidance, and counseling 928259291 Z71.82 Increased body mass index 82601547 E66.3 Fatigue 01360206 R53.83 Thyroid fu nction tests abnormal 804818085 R94.6 Anemia 142965277 D64.9 Acne 02286244 L70.9 Altered tiana wel function 77308945 R19.4 Anxiety state 747633281 F41.1 Gluten sensitivity 24728 1003 K90.41 [id number] YESENIA GOINS MD [address] [address] 4 03/17/2022 08:14:52 03/17/2022 09:50:34 Active or passive immunization 952383844 Z23 [id number] Amanda Johnson MD [address] [address] 4 07/15/2022 13:57:55 07/15/2022 16:59:53 Pityriasis rosea 80832659 L42 Health Concerns Section Related Observation LastModified by Organization Detai ls LastModified Time None Recorded Concern Status LastModified by Organization Details LastModified Time None Recorded Advance Directives Directive None Recorded Payers Insurance Date Sequence Insurance Name Policy Number Policy Quiroz Covered Member ID Quiroz Member ID Guarantor Name 03/25/2014 2 [employer] [id number] Toan Farhantrista [id number] Yuliya Wright 03/25/2014 1 [employer] (HMO) [id number] Toan Nunez [id number] Yuliya Wright 05/06/[address] [facility] - HEALTH NET PLAN (MEDICAID HMO) Rox Mayra [id number] Yuliya Wright 05/06/2014 2 [place] Rox Mayra [id number] Yuliya Wright 07/15/2022 1 [place] [id number] 1 Amaury Wright [id number] Yuliya Wright 03/25/2014 2 [place]UE CARD [id number] 1 Amaury Nunez [id number] Yuliya Adriana Notes Date Note Type Note Provider Name and Address Organization Details Recorded Time 01/16/2021 text/html Pt afebrile. No ill symptoms in >10 days. No known Covid 19 exposure. No travel out of [place] in > 2 weeks. Amanda Johnson MD [address] [place] [address], [phone], [facility] 01/16/2021 16:42:33 07/15/2022 text/html RS Sick Visit Narrative HistoryReported bypatient.Notes:Pt here for a rash on abdomen that was noticed last week. Rash started just on stomach but pt has noticed it going up neck now. Rash is red, dry, and blotchy. Not painful but is itchy. No bleeding or drainage. Has tried using hydorcortisone cream with no relief. No new soaps or perfumes used. No new foods or drinks. Pt states that she has used a new laundry detergent but has used the same one in the past with no issues. Pt states that she has been doing Keto diet and had increased carbs on the day she noticed it. Amanda Johnson MD [address] [place] [address], [place], [id number], [facility] 07/15/2022 18:22:03 OBGyn Episode No OBEpisode recorded.
--- OUTSIDE RECORDS SUMMARY | 2025-02-16 11:24 | XMS_ITS | Data Portability ---
Author Organization [place] - [facility], [facility] Address [address] [place] [address] Assessment Encounter Date Assessment Date Assessment LastModified [...] wt, no concern for eating disorder, has electron microscopist giving her help and sees GI as [...] #2, +A, -SCD; BMI 95th% - diet/exercise, child protective services specialist did not help so stopped seeing her, now seeing railroad track inspector and has been on supplements and told she had hypothyroidism (+FH same), getting repeat labs in Apr by railroad track inspector; GI - gluten sensitivity vs celiac, hx TTG 7 and now <1 without gluten in diet, removal was definitely very helpful, also has dx IBS from GI and has new railroad track inspector who has added iron/other supplements and she [...] as well; Acne - topical meds only, railroad track inspector stopped her OCPs and now having mild [...] By Organization Details Last Modified Time 01/16/2021 [id number] program - 5 fruits & veggies kcamera Not available 01/16/2021 14:24:16 [id number] program - 1 hour of exercise kcamera Not available 01/16/2021 14:24:16 patient health questionnaire depression assessment* kcamera Not available 01/16/2021 14:27:41 immunization: wh at you need to know kcamera Not available 01/16/2021 14:24:17 03/05/2022 [id number] program - 5 fruits & veggies kcamera [...] sment * PHQ-9 negati ve Not Available [facility] [address] [place] [address], [address], 01/16/2021 13:00:11 03/05/20 22 03/05/2022 patie nt healt h quest ionna coleen depre ssion asses sment * PHQ-9 negati ve Not Available [address], [address], 03/04/2022 10:35:58 Result Notes None recorded. Problems Name Problem SNOMED Code Status Onset Date Resolution Date Notes Provider Name and Address Organization Details Recorded Time Active or passive immuniza tion Completed 04/17/2013 Rimma Riley MD [address] [place] [address], [address], [facility] 6 10:30:04 Administ ration of diphther ia, pertussi s, and tetanus vaccine Completed 04/17/2013 Rimma Riley MD [address] [place] [address], [address], [facility] 6 10:30:04 Pneumoni a [id number] Completed 04/17/2013 Rimma Riley MD [address] [place] [address], [address], [facility] 6 10:30:03 Foot pain 89137250 Completed 11/23/2013 Rimma Riley MD [address] [place] [address], [address], [facility] 6 10:30:03 Upper respirat ory infectio n 69985795 Completed 11/23/2013 Rimma Riley MD [address] [facility] [place], [address], [facility] 6 10:30:03 Sinusiti s [id number] Completed 11/23/2013 Rimma Riley MD [address] [facility] [place], [address], [facility] 6 10:30:03 Concussi on Completed 11/23/2013 Rimma Riley MD [address] [place], 3, [facility] 6 10:30:03 Renal impairme nt 473221630 Completed 05/08/2014 Rimma Riley MD [address] [facility] [place], [address], [facility] 6 10:30:03 Upper respirat ory infectio n 97406741 Completed 05/08/2014 Rimma Riley MD [address] [facility] [place], [address], [facility] 6 10:30:03 Pneumoni a 851149955 Completed 05/13/2015 Rimma Riley MD [address] [facility] [place], [address], [facility] 6 10:30:03 Foot pain 07474847 Completed 05/13/2015 Rimma Riley MD [address] [place], [place] [address] [place], [address], [facility] 6 10:30:03 Thumb injury 368311629 Completed 05/13/2015 Rimma Riley MD [address] [place] [address] [place], [address], [facility] 6 10:30:03 Excessiv e weight gain 532927350 Completed 10/14/2015 Rimma Riley MD [address] [place] [address] [place], [address], [facility] 6 10:30:04 Abnormal weight 06776220 Completed 05/18/2016 Rimma Riley MD [address] [place] [address] [place], [address], [facility] 6 09:22:21 Migraine without aura 03662945 Active 2016 improved with gf diet Amanda Johnson MD [address] [place] [address] [place], [address], [facility] 1 16:39:12 Allergy to drug 849554764 Active 2017 rash w/ brenday Rimma Rilye MD [address] [place] [address] [place], [address], [facility] 8 19:18:45 Childhoo d obesity 221619982 Completed 201901/16/2021 Amanda Johnson MD [address] [place] [address] [place], [address], [facility] 1 16:38:39 Nausea 766750579 Completed 201901/16/2021 Amanda Johnson MD [address] [place] [address] [place], [address], [facility] 1 16:39:18 Loss of hair 177250714 Active 2019 improved when started gf diet Amanda Johnson MD [address] [place] [address] [place], [address], [facility] 1 16:39:00 Altered bowel function 60168671 Active 2019 both diarrhea/ constipat ion, ?IBS; possible celiac with TTG 7 02/2020, seeing GI - all sxs improved by going gluten free except constipat ion, added Linzess but no help; GF diet has helped the most 2020 Amanda Johnson MD [address] [place] [address] [place], [address], [facility] 1 16:38:31 SARS-CoV -2 Completed 201901/16/2021 Amanda Johnson MD [address] [facility], [place], [address], [facility] 1 16:39:38 Irritabl e bowel syndrome 88515902 Active 2020 Amanda Johnson MD [address] [facility], [place], [address], [facility] 1 16:41:56 Gluten sensitiv ity 267349784 Active 2020 Amanda Johnson MD [address] [facility], [place], [address], [facility] 1 16:41:57 Increase d body mass index 78030744 Active 2020 Amanda Johnson MD [address] [facility], [place], [address], [facility] 1 16:42:01 Thor manning 77384304 Active 2021 Amanda Johnson MD [address] [facility], [place], [address], [facility] 2 14:26:52 Separati on anxiety 012236798 Completed 04/21/2012 Rimma Riley MD [address] [facility], [place], [address], [facility] 6 10:30:03 Eruption 617471391 Completed 200807/21/2009 Rimma Riley MD [address] [facility], [place], [address], [facility] 6 10:30:03 Viral disease 75196551 Completed 200807/21/2009 Rimma Riley MD [address] [place] [address], [place], [address], [facility] 6 10:30:03 Disorder of thyroid gland 45687826 Completed 06/29/2011 Rimma Riley MD [address] [facility], [place], [address], [facility] 6 10:30:03 Seborrhe a Completed 06/29/2011 Rimma Riley MD [address] [facility] [place], [address], [facility] 6 10:30:03 Thyroidi tis 33114052 Completed 05/08/2014 Rimma Riley MD [address] [facility] [place], [address], [facility] 6 10:30:03 Thyroidi tis 55543652 Completed 04/19/2012 Rimma Riley MD [facility] [place], [address], [facility] 6 10:30:03 Thyroidi tis 86831891 Completed 06/29/2011 Rimma Riley MD [address] [facility] [place], [address], [facility] 6 10:30:03 Allergic rhinitis 54285132 Completed 200804/21/2012 Rimma Riley MD [address] [facility] [place], [address], [facility] 6 10:30:03 Acute pharyngi tis 367012173 Completed 200607/21/2009 Rimma Riley MD [address] [place] [address] [place], [address], [facility] 6 10:30:03 Anxiety state 353605936 Active improved 01/2020 Amanda Johnson MD [address] [facility] [place], [address], [facility] 0 12:35:53 Anxiety state 288830014 Completed 06/29/2011 Amanda Johnson MD [address] [facility] [place], [address], [facility] 0 12:35:53 Impetigo 68145742 Completed 06/29/2011 Rimma Riley MD [address] [place], [place] [address], [address], [facility] 6 10:30:03 Precocio us sexual developm ent Completed 06/29/2011 Rimma Riley MD [facility] [place], [address], [facility] 6 10:30:03 Obesity 323905268 Completed 05/08/2014 Rimma Riley MD [address] [place], [place] [address], [address], [facility] 6 10:30:03 Acute sinusiti s 01527762 Completed 01/21/2012 Rimma Riley MD [address] [place] [address] [address] [place], [address], [facility] 6 10:30:03 Acute upper respirat ory infectio n 07127059 Completed 200607/21/2009 Rimma Riley MD [address] [place] [address] [place], [address], [facility] 6 10:30:03 Acute conjunct ivitis 53325877 Completed 200807/21/2009 Rimma Riley MD [address] [place] [address] [place], [address], [facility] 6 10:30:03 Otalgia 90823739 Completed 06/29/2011 Rimma Riley MD [address] [place], [place] [address], [address], [facility] 6 10:30:03 Increase d body mass index 40627061 Completed 01/16/2020 Amanda Johnson MD [address] [place] [address] [address] [place], [address], [facility] 1 16:42:01 Abnormal weight gain 948214494 Completed 04/19/2012 Rimma Riley MD [address] [place] [address] [place], [address], [facility] 6 10:30:03 Abnormal weight gain 776682979 Completed 06/29/2011 Rimma Riley MD [address] [facility], [place], [address], [facility] 6 10:30:03 Acne 97563368 Active derm & BCPS 2016, stopped OCPs 01/2020 Amanda Johnson MD [address] [facility], [place], [address], [facility] 0 12:35:08 Vaginiti s and vulvovag initis Completed 06/29/2011 Rimma Riley MD [address] [facility], [place], [address], [facility] 6 10:30:03 Notes:BMI labs done 2015 * * HGb 2018 Problem Notes None recorded. Medical Equipment None Reported. Allergies Allergen ID Allergen Name Allergen Category Reaction Reaction Severity Criticality Documentation Date Start Date Code Code System Note Provider Name and Address Organization Details Recorded Time 67912 doxycycli ne Not available rash Not available Not available 12/11/2016 3640 RxNorm Rimma Riley MD [address] [facility], [place], [address], [facility] 7 17:26:33 [...] Not Available Not Available Not Available Transderm-S endoscopy technican 1 mg over 3 days transdermal patch [...] 01/16/2021 162.56 cm 28.7 kg/m2 91 % 77620.6 4 g 106/64 mm[Hg] Juliet Harrison R.N. [place] - [facility] 14:07:08 Date Recorded Body height Systolic And Diastolic Provider Name and Address Organization Details Last Updated DateTime 03/05/2022 162.56 cm 112/70 mm[Hg] Renetta De Leon R.N. [facility] 03/05/2022 14:01:30 Date Recorded Body mass index (BMI) Body mass index (BMI) [Percentile] Per age and sex Body weight Provider Name and Address Organization Details Last Updated DateTime 03/05/2022 32.4 kg/m2 95 % 98727.96 g Yamilex Giron R.N. 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 PROBLEMS Y HEMATOLOGIC /ONCOLOGIC PROBLEMS N RENAL [...] trivalent, intranasal 04/17/20 11 completed Not Available [facility] 08/27/2019 02:35:10 Novel [id number]-[id number] , nasal 07/12/20 09 completed Not Available [facility] 08/27/2019 02:34:48 Influenza, live, trivalent, intranasal 04/21/20 12 completed Not Available [facility] 08/27/2019 02:35:29 varicella 05/02/20 08 completed Not Available [facility] 06/14/2011 03:16:44 Influenza, split virus, trivalent, preservative 07/24/20 09 completed Not Available [facility] 08/27/2019 02:34:45 meningococcal MCV4P 03/03/20 13 completed Not Available [facility] 08/27/2019 02:33:33 Tdap 03/03/20 13 completed Not Available [facility] 08/27/2019 02:33:46 Influenza, live, quadrivalent, intranasal 07/15/20 13 completed Not Available [facility] 08/27/2019 02:35:34 Novel Phnekqjyf-[id number] , nasal 08/13/19 10 completed Not Available [facility] 08/27/2019 02:34:49 HPV, quadrivalent 12/30/19 14 completed Not Available [facility] 08/27/2019 02:34:12 HPV, quadrivalent 03/02/20 14 completed Not Available [facility] 08/27/2019 02:34:13 Influenza, live, quadrivalent, intranasal 06/13/20 14 completed Not Available [facility] 08/27/2019 02:35:51 HPV, quadrivalent 07/04/20 14 completed Not Available [facility] 08/27/2019 02:34:15 Influenza, live, quadrivalent, intranasal 05/16/20 15 completed Not Available [facility] 08/27/2019 02:36:17 Influenza, split virus, quadrivalent, PF 05/22/20 16 completed Not Available [facility] 08/27/2019 02:37:08 COVID-19, mRNA, LNP-S, PF, 30 mcg/0.3 mL dose 10/23/19 21 completed Edson Diaz [facility] 01/16/2021 14:12:49 COVID-19, mRNA, LNP-S, PF, 30 mcg/0.3 mL dose 11/13/19 21 completed Edson Diaz [facility] 01/16/2021 14:13:09 meningococcal MCV4P 06/11/20 17 completed Not Available [facility] 08/27/2019 02:37:44 Influenza, split virus, quadrivalent, PF 06/11/20 17 completed Not Available [facility] 08/27/2019 02:37:56 Influenza, split virus, quadrivalent, PF 07/29/20 18 completed Not Available [facility] 08/27/2019 02:39:04 influenza, unspecified formulation 05/08/20 09 completed Not Available [facility] 06/14/2011 03:17:07 Influenza, split virus, quadrivalent, PF 05/28/20 19 completed Not Available [facility] 08/27/2019 02:39:11 Hep A, ped/adol, 2 dose 01/16/20 20 cancelled patient objection Amanda Johnson MD [address] [place] [address], , [facility] 01/16/2020 09:03:47 meningococcal B, OMV 01/16/20 20 cancelled patient objection Amanda Johnson MD [address] [place] [address], , [facility] 01/16/2020 09:03:47 Hep A, adult 01/17/20 21 cancelled patient objection Amanda Johnson MD [address] [place] [address], , [facility] 01/16/2021 14:24:17 meningococcal B, OMV 01/17/20 21 cancelled patient objection Amanda Johnson MD [address] [place] [address], , [facility] 01/16/2021 14:24:17 Hep A, adult 03/19/20 21 completed YAMILEX CANTU MD [address] [place] [address], , [facility] 03/21/2021 09:14:06 Hep A, adult 03/05/20 22 cancelled patient objection Amanda Johnson MD [address] [place] [address], , [facility] 03/05/2022 17:53:48 meningococcal B, OMV 03/05/20 22 cancelled patient objection Amanda Johnson MD [address] [place] [address], , [facility] 03/05/2022 17:53:48 Hep A, adult 03/17/20 22 [facility]/17/2022 08:37:04 varicella 04/05/20 02 completed Not Available [facility] 06/14/2011 03:17:38 MMR 07/14/20 02 completed Not Available [facility] 06/14/2011 03:17:38 MMR 04/07/20 05 completed Not Available [facility] 06/14/2011 03:17:38 DTaP, unspecified formulation 06/02/20 01 completed Not Available [facility] 06/14/2011 03:17:38 DTaP, unspecified formulation 08/06/20 01 completed Not Available [facility] 06/14/2011 03:17:38 DTaP, unspecified formulation 10/05/19 02 completed Not Available [facility] 06/14/2011 03:17:38 DTaP, unspecified formulation 10/07/19 03 completed Not Available [facility] 06/14/2011 03:17:38 DTaP, unspecified formulation 04/01/20 06 completed Not Available [facility] 06/14/2011 03:17:38 Hib, unspecified formulation 08/06/20 01 completed Not Available [facility] 06/14/2011 03:17:38 Hib, unspecified formulation 10/05/19 02 completed Not Available [facility] 06/14/2011 03:17:38 Hib, unspecified formulation 07/14/20 02 completed Not Available [facility] 06/14/2011 03:17:38 IPV 06/02/20 01 completed Not Available [facility] 06/14/2011 03:17:38 IPV 08/06/20 01 completed Not Available [facility] 06/14/2011 03:17:38 IPV 10/07/19 03 completed Not Available [facility] 06/14/2011 03:17:38 IPV 04/01/20 06 completed Not Available [facility] 06/14/2011 03:17:38 Hib, unspecified formulation 06/02/20 01 completed Not Available [facility] 06/14/2011 03:17:38 pneumococcal conjugate PCV 7 06/02/20 01 completed Not Available [facility] 06/14/2011 03:17:38 pneumococcal conjugate PCV 7 08/06/20 01 completed Not Available [facility] 06/14/2011 03:17:38 pneumococcal conjugate PCV 7 10/05/19 02 completed Not Available [facility] 06/14/2011 03:17:38 pneumococcal conjugate PCV 7 04/06/20 03 completed Not Available [facility] 06/14/2011 03:17:38 Hep B, unspecified formulation 05/10/20 01 completed Not Available [facility] 06/14/2011 03:17:38 Hep B, unspecified formulation 04/07/20 01 completed Not Available [facility] 06/14/2011 03:17:38 Hep B, unspecified formulation 01/06/20 02 completed Not Available [facility] 06/14/2011 03:17:38 Influenza, live, trivalent, intranasal 06/13/20 10 completed Not Available [facility] 08/27/2019 02:35:02 Past Encounters Encounter ID Performer Location Encounter Start Date Encounter Closed Date Diagnosis/Indication Diagnosis SNOMED-CT Code Diagnosis ICD10 Code Diagnosis Note [id number] Rimma Riley MD [address] [address] 04/09/2007 15:11:03 04/09/2007 15:47:09 [id number] Saleem Ochoa MD [facility] [address] [place] [id number] 07/29/2007 09:00:24 07/29/2007 09:18:28 [id number] Rimma Riley MD [facility] [place] [address] [place] [id number] 4 07/31/2007 09:49:37 07/31/2007 10:36:21 [id number] Rimma Riley MD [facility] [place] [address] [place] [id number] 4 09/22/2007 09:32:36 09/22/2007 10:24:10 [id number] Rimma Riley MD [facility] [place] [facility] [address] [place] [id number] 4 05/02/2008 11:21:11 05/02/2008 12:46:55 [id number] Rimma Riley MD [facility] [address] [place] [id number] 4 11/14/2008 09:11:52 11/14/2008 09:46:19 [id number] Marcellus Tijerina MD [facility] [address] [place] [address] 01/26/2009 09:35:51 01/26/2009 09:58:20 [id number] Rimma Riley MD [facility] [address] [place] [address] 05/08/2009 15:48:34 05/08/2009 17:02:28 [id number] Rimma Riley MD [facility] [place] [address] [place] [address] 07/24/2009 14:21:29 07/24/2009 17:48:19 [id number] Rimma Riley MD [facility] [place] [address] [place] [address] 10/24/2009 16:12:12 10/24/2009 17:06:36 [id number] Rimma Riley MD [facility] [place] [address] [place] [address] 12/13/2009 13:32:36 12/13/2009 15:24:07 [id number] Rimma Riley MD [facility] [place] [address] [place] [address] 02/19/2010 13:31:43 02/19/2010 14:27:19 [id number] Rimma Riley MD [facility] [place] [address] [place] [address] 04/09/2010 14:44:25 04/09/2010 16:20:23 [id number] Rimma Riley MD [facility] [address] [place] [address] 06/13/2010 14:17:39 06/13/2010 15:01:55 [id number] Rimma Riley MD [facility] [address] [place] [address] 08/13/2010 10:17:42 08/13/2010 11:29:29 [id number] Rimma Riley MD [facility] [place] [address] [place] [address] 11/19/2010 14:25:39 11/19/2010 16:34:25 [id number] Rimma Riley MD [facility] [address] [place] [address] 02/17/2011 14:09:33 02/17/2011 15:00:05 [id number] Rimma Riley MD [facility] [address] [place] [address] 04/17/2011 15:45:36 04/17/2011 17:53:43 [id number] Rimma Riley MD [facility] [address] [place] [address] 04/29/2011 14:33:15 04/29/2011 16:22:19 [id number] María Fox MD [facility] [address] [place] [address] 07/13/2011 08:35:50 07/13/2011 08:49:47 [id number] Rimma Riley MD [facility] [address] [place] [address] 07/17/2011 15:51:18 07/17/2011 17:04:19 [id number] Rimma Riley MD [facility] [address] [place] [address] 10/15/2011 15:48:34 10/15/2011 17:15:18 [id number] Vandana COTTON APRN, PhD [place] [address] 11/25/2011 15:17:43 11/25/2011 16:26:59 [id number] Vandnaa COTTON APRN, PhD [place] [address] 2 01/13/2012 16:23:02 01/13/2012 17:00:44 [id number] Rimma Riley MD [facility] [address] [place] [address] 01/21/2012 14:32:16 01/21/2012 15:28:22 [id number] Vandana COTTON, SNOW MAKER, PhD [place] [address] 03/08/2012 16:21:47 03/08/2012 17:35:26 [id number] [facility] [address] [place] [id number] 04/21/2012 14:18:37 04/21/2012 16:27:54 [id number] Vandana COTTON, SNOW MAKER, PhD [place] [address] 06/21/2012 16:19:36 06/21/2012 17:06:21 [id number] Vandana COTTON, SNOW MAKER, PhD [place] [address] 2 08/17/2012 14:51:20 08/17/2012 16:02:29 [id number] Rimma Riley MD [address] [address] 09/01/2012 16:21:58 09/01/2012 17:09:10 [id number] Vandana COTTON SNOW MAKER, PhD [place] [address] 2 10/12/2012 14:11:54 10/12/2012 15:16:34 [id number] Vandana COTTON SNOW MAKER, PhD [place] [address] 2 11/16/2012 14:59:01 11/17/2012 08:46:47 [id number] Rimma Riley MD [address] [address] 12/01/2012 13:51:58 12/01/2012 14:44:11 [id number] Vandana COTOTN SNOW MAKER, PhD [place] [address] 2 12/28/2012 15:00:43 12/28/2012 16:56:02 [id number] Rimma Riley MD [address] [address] 03/03/2013 13:53:43 03/03/2013 14:42:20 Active or passive immunization [id number] Administra tion of diphtheria, pertussis, and tetanus vaccine [id number] Shot only Tdap [id number] Saleem Ochoa MD [facility] [address] [address] 04/05/2013 10:52:25 04/05/2013 11:30:23 Pneumonia [id number] Rimma Riley MD [address] [address] 4 04/20/2013 14:10:55 04/20/2013 17:21:45 Well child 230181166 Will return for HPV w/friend Acne 58538601 looks go od today Anxiety state 307976149 Needle phobia-is better-had hypnothera py-didn't help much-on wait list for therapist (Myra Wilhelm) Increased body mass index 21521241 weight has increased over the past 5 months-dinah l check labs and see nutrition- will f/u after that. Goal is BMI < 25 Foot pain 26279947 mildl y tender dorsum foot-NOT ankle area. Doubt was ankle sprain. No redness. Will d/c brace-acti vities as tolerated. [id number] Saleem Ochoa MD [address] [address] 4 06/12/2013 11:54:29 06/12/2013 12:20:12 Upper respiratory infection 01779082 [id number] Saleem Ochoa MD [address] [address] 4 06/21/2013 13:20:35 06/21/2013 13:56:26 Upper respiratory infection 92789289 [id number] oRger Dill MD [address] [address] 4 07/15/2013 15:33:37 07/15/2013 15:52:10 Influenza vaccine needed 7686463711 [id number] Roger Dill MD [address] [address] 4 07/22/2013 15:26:40 07/22/2013 16:43:22 [id number] Rimma Riley MD [address] [address] 4 08/14/2013 11:22:43 08/14/2013 11:48:05 Sinusitis 33497831 [id number] Amanda Johnson MD [facility] [address] [address] 09/15/2013 10:24:47 09/15/2013 11:40:42 Concussion 28673365 [id number] Amanda Johnson MD [facility] [address] [address] 4 09/21/2013 13:41:33 09/21/2013 15:26:12 Concussion 64116338 [id number] Rimma Riley MD [facility] [address] [address] 4 10/12/2013 08:44:04 10/12/2013 09:33:46 Concussion 45097652 [id number] Rimma Riley MD [facility] [address] [address] 4 11/02/2013 14:46:12 11/02/2013 15:33:18 Concussion 91596646 now almost 2 months out-CGS=12 (was 19 [...] not 100%. Did school accommodat ion form. [id number] Amanda Johnson MD [facility] [address] [address] 12/29/2013 15:42:28 12/29/2013 16:14:33 Administration of viral vaccine 10357522 Shot only HPV [id number] Saleem Ochoa MD [facility] [address] [address] 4 03/02/2014 09:39:15 03/02/2014 09:58:13 Administration of viral vaccine 27145851 Shot only HPV [id number] Saleem Pittman MD [address] [address] 05/06/2014 10:23:36 05/06/2014 11:18:42 Upper respiratory infection 29477559 [id number] Rimma Riley MD [address] [address] 4 05/12/2014 14:59:41 05/12/2014 17:30:28 Well child 629026813 will get U/A and creat done in a few months Anxiety state 174864103 Sees Myra S q o week-start ed 07/22-and Florencia Nickerson for medication -on Zoloft (? dose) x 6 months-nee dle phobia resolved w/shots and better w/labs. GAS better Childhood obesity 643945268 Weight now up again- just had nl labs. .Mom saw nutrtion 2011- as well as weight managemnet 2007- wants to follow at home-feels lost weight recently. Pneumonia 917453996 seen 6 days ago- afebrile & exam at that time wnl-then had fever x 4 days-last was yesterday am-not since-stil l w/cough-no w rales on exam-will treat-f/u if cough not improving over the next 5-7 days sooner prn [id number] Amanda Johnson MD [address] [address] 4 06/14/2014 14:26:36 06/14/2014 15:21:54 Foot pain 47004866 [id number] Roger Dill MD [address] [address] 4 07/04/2014 14:23:48 07/04/2014 14:58:01 Administration of viral vaccine 65837929 Shot only HPV [id number] Amanda Johnson MD [address] [address] 4 11/01/2014 16:29:08 11/01/2014 16:55:14 Thumb injury 684373950 [id number] Rimma Riley MD [address] [address] 05/16/2015 15:56:31 05/16/2015 17:00:13 Active or passive immunization 213324441 Z23 Well child 722604911 Z00 .129 will get U/A and creat done in a few months Increased body mass index 59793662 E66.9 BMI continues to increase-n ow > 97%- did not like weight management clinic-dinah skinner recheck labs & check for PCOS--will d/c all calorie drinks-robert ch intake-wor k on fruits and veggies-f/ u in 1 month Anxiety state 405814000 F41.1 Sees Myra S q month and Florencia Nickerson for medication -on Zoloft & welbutrin ( ? dosage )- doing well-mom to call w/dosage. [id number] Rimma Riley MD [address] [address] 4 08/17/2015 13:35:31 08/17/2015 15:25:48 Excessive weight gain 624193666 R63.5 excellent weight control-no gain over the past 3months even w/the holidays-h lauro to eat out less than 2 times a week chol done-reche ck next year f/u in 2 months [id number] Rimma Riley MD [address] [address] 4 10/17/2015 16:01:59 10/17/2015 16:50:35 Abnormal weight 90625674 R63.5 BMI stable-but weight increased a few lbs since last visit-Rox is now exercising !!! She will work on healthy eating at her dad's house (this may have been a factor not shared w/us) not have a cookie at lunch. Will aim for decreased weight at next visit. F/u in 2 months [id number] Saleem Ochoa MD [address] [address] 4 02/05/2016 16:21:36 02/05/2016 17:03:59 Upper respiratory infection 55968181 J06.9 Serous otitis media 8032 7007 H65.01 [id number] Rimma Riley MD [address] [address] 4 02/19/2016 11:42:29 02/19/2016 15:30:36 Dysfunction of eustachian tube 87889748 H69.91 [id number] Rimma Riley MD [facility] [address] [address] 4 05/22/2016 14:49:29 05/22/2016 16:07:08 Well child 052685981 Z00.129 Administra tion of influenza vaccine 47840703 Z23 Acne 19393314 L70.9 followed by dermatolog y-on topicals-s kin looks great-next appt in a few months Anxiety state 658753938 F41.1 Sees Myra S q month was -on Zoloft & welbutrin -stopped meds approx 1 year-feels like she is doing well Increased body mass index 41120493 E66.9 BMI continues to increase > 95%-will start Lose It Lillian-limit to 1500 cals- work on exercise-f /u in 2 monthsChec k BMI labs in a few months ( last done 07/24 ) Folliculitis 36897980 L7 3.9 lesions on chest x 1 months-ini tially pustules-w ill start bactrim-if not better in 1 week will f/u-if any new lesions will f/u sooner [id number] Rimma Riley MD [facility] [address] 12/11/2016 17:06:46 12/11/2016 18:05:03 Itching of skin 196714196 L29.9 [id number] Rimma Riley MD [address] [address] 4 03/31/2017 13:16:16 03/31/2017 14:46:44 Headache 37010576 R51 It appears that Rox has had [...] a week. Will f/u in 6 weeks. [id number] Rimma Riley MD [address] [address] 05/13/2017 13:55:41 05/13/2017 14:53:26 Migraine without aura 96633910 G43.009 had 4 migraines last month-exce drin migraine really helped. on migrelief bid. Rox is happy with this. Also with a few tension HAs. Will continue hydration and adequate sleep. F/u at [facility] in a few weeks then will f/u in 2-3 months after that. [id number] Rimma Riley MD [facility] [address] [place] [address] 05/26/2017 13:16:33 05/26/2017 15:40:24 Well child 490637064 Z00.129 will defer immunizati ons today since going to work after exam- give at next appt for BCPS or MOORE recheck Childhood obesity 650042 003 Z68.54 BMI still > 95% but decreasing -will continue healthy eating and work on exercise-w ill f/u at next WC-sooner if increasing . Labs done last year and wnl Acne 90532165 L70.9 followed by dermatolog y-on topicals- duac- & cefdinir-d ermatology wants off oral medication -will consider BCPS vs accutane Anxiety state 202863862 F41.1 Sees Myra Gentile q month was -on Zoloft & welbutrin -stopped meds approx 2 year-feels like she is doing well Migraine without aura 56 877979 G43.009 -Excedrin migraine really helps & on migrelief bid. No Migraines since last visit 2 weeks ago. Rox is happy with this. Also with a few tension HAs. Will continue hydration and adequate sleep. Will f/u in 2-3 months [id number] MD [place]UL[place] [address] 06/11/2017 12:43:23 06/11/2017 16:16:50 Active or passive immunization 703465524 Z23 Acne 33448902 L70.9 followed by dermatolog y-on topicals- duac bid now and off oral antibiotic s. Will start BCPS now. No contraindi cations. INfo sheet reviewed. Will start w/ next menses. Not SA Urine PCR 2nd to insurance requiremen ts. F/u in 3 months. [id number] Amanda Johnson MD [address] [address] 06/22/2017 09:24:40 06/22/2017 12:20:49 Tick bite 11508046 S00.96XA [id number] Rimma Riley MD [address] [address] 09/11/2017 15:54:38 09/11/2017 17:31:54 Migraine without aura 85628346 G43.009 migraines ae less frequent and excedrin migraine doesn't work. Is off migrelief now. Will continue hydration and adequate sleep. Will try imitrex for next migraine Acne 02013454 L70.9 Had been followed by dermatolog y-last visit 04/2017. Stopped topicals & now on BCPS x 3 months and doing well. Restart duac. Will f/u w/ derm. Continue BCPS and f/u at next [facility]. [id number] Mony Sousaceasar, [address] [address] 07/29/2018 15:21:22 07/29/2018 15:36:07 Active or passive immunization 606937058 Z23 [id number] Rimma Riley MD [address] [address] 4 09/30/2018 09:55:20 09/30/2018 12:19:42 Well child 902579557 Z00.129 ? meningitis B at f/u visit- check urine PCR then Childhood obesity 901890 003 Z68.54 BMI increasing -will work on weight loss- Rox is motivated hates to have bloodwork done-- will hold off on BMI labs as long as she is decreasing ( at least 5 lbs ) over the next few months. Acne 66609040 L70.9 Had been followed by dermatolog y- last visit 05/27- needs f/u appt- stopped using topicals because irritating skin. Still on BCPs. Anxiety state 033931725 F41.1 Sees Myra Gentile q month was -on Zoloft & welbutrin -stopped meds approx 3 year-feels like she is doing well Migraine without aura 56 473830 G43.009 Migraines are less frequent- knows triggers- godinez or garlic and junk food without healthy food. Imitrex did work. Last was months ago. [id number] Mony Garner, [address] [address] 06/09/2019 15:33:10 06/09/2019 16:31:59 Headache 76926871 R51 Fatigue 27095658 R53.83 Anxiety 98956448 F41.9 [id number] Amanda Johnson MD [address] [address] 11/07/2019 09:15:42 11/07/2019 14:32:04 Headache 82461720 R51 Otalgia 25816265 H92.01 [id number] Amanda Johnson MD [address] [address] 4 01/16/2020 08:12:14 01/16/2020 12:37:44 Well child 871683486 Z00.129 Childhood obesity 709217 003 Z68.54 Active or passive immunization 881146421 Z23 Anxiety state 832655657 F41.1 Migraine without aura 56 283159 G43.009 Acne 11525444 L70.9 Nausea 676575883 R11.0 Loss of hair 814941242 L 65.9 Altered tiana wel function 70251257 R19.4 [id number] María Fox MD [address] [address] 03/09/2020 10:13:32 03/09/2020 15:44:17 Contact dermatitis 47701533 L25.9 OTC and keep record of what contacts she has had ? plant resinsx tx reassuranc e and f/u PRN Bee sting 074566072 T63. 91XA L hand and appears to be resolving [id number] Batsheva Matias MD [address] [address] 06/08/2020 10:16:59 06/08/2020 13:38:51 Diarrhea 41755463 R19.7 SARS-CoV-2 177824655 U07 .1 Acute laryngitis 1285573 J04.0 [id number] Amanda Johnson MD [address] [address] 01/16/2021 13:58:39 01/16/2021 17:17:55 Active or passive immunization 012029401 Z23 Adult heal th examination 654520489 Z00.00 Diet education 83724891 Z71.3 Exercises education, guidance, and counseling 301306178 Z71.82 Increased body mass index 58975714 E66.3 Gluten sensitivity 58638 1003 K90.41 Irritable bowel syndrome 14041588 K58.9 [id number] YAMILEX CANTU MD [address] [address] 03/19/2021 08:15:23 03/19/2021 08:24:57 Active or passive immunization 396751337 Z23 [id number] Amanda Johnson MD [address] [address] 03/05/2022 13:49:20 03/05/2022 16:13:14 Active or passive immunization 798237961 Z23 Adult heal th examination 368925429 Z00.00 Diet education 14416891 Z71.3 Exercises education, guidance, and counseling 132008484 Z71.82 Increased body mass index 63744288 E66.3 Fatigue 91648870 R53.83 Thyroid fu nction tests abnormal 803987125 R94.6 Anemia 314367760 D64.9 Acne 69131814 L70.9 Altered tiana wel function 32916434 R19.4 Anxiety state 534169683 F41.1 Gluten sensitivity 08641 1003 K90.41 [id number] YESENIA GOINS MD [address] [address] 03/17/2022 08:14:52 03/17/2022 09:50:34 Active or passive immunization 040092636 Z23 [id number] Amanda Johnson MD [address] [address] 07/15/2022 13:57:55 07/15/2022 16:59:53 Pityriasis rosea 17710678 L42 Health Concerns Section Related Observation LastModified by Organization Detai ls LastModified Time None Recorded Concern Status LastModified by Organization Details LastModified Time None Recorded Advance Directives Directive None Recorded Payers Insurance Date Sequence Insurance Name Policy Number Policy Quiroz Covered Member ID Quiroz Member ID Guarantor Name 03/25/2014 2 [employer] [id number] Toan Farhantrista [id number] Yuliya Wright 03/25/2014 1 [employer] (HMO) [id number] Toan Nunez [id number] Yuliya Wright 05/06/2014 1 [facility]ALTH [facility] PLAN (MEDICAID HMO) Rox Mayra [id number] Yuliya Wright 05/06/2014 2 [place] [facility] Rox Mayra [id number] Yuliya Wright 07/15/2022 1 [place] [id number] 1 Amaury Wright [id number] Yuliya Wright 03/25/2014 2 [place] - [place]UE CARD [id number] 1 Amaury Nunez [id number] Yuliya Adriana Notes Date Note Type Note Provider Name and Address Organization Details Recorded Time 01/16/2021 text/html Pt afebrile. No ill symptoms in >10 days. No known Covid 19 exposure. No travel out of [place] in > 2 weeks. Amanda Johnson MD [address] [place] [address], [phone], [facility] 01/16/2021 16:42:33 07/15/2022 text/html RS Sick [...] day she noticed it. Amanda Johnson MD [address] [place] [address], [place], [address], [facility] 07/15/2022 18:22:03 OBGyn Episode No OBEpisode recorded.
--- OUTSIDE RECORDS SUMMARY | 2025-02-16 11:24 | XMS_ITS | Clinical Summary ---
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 Frame Operator Name Role Phone Pcp, No Primary Care Provider [phone] Allergies Active Allergy Reactions Criticality Noted Date Comments Doxycycline Hives 04/20/2023 Other reaction(s): rash, Unknown Gluten Rash Low 04/20/2023 Medications citalopram (CeleXA) 10 MG tablet TAKE 1 TABLET BY MOUTH EVERY DAY 04/02/2023 Active sertraline (ZOLOFT) 50 MG tablet Take 1 tablet (50 mg total) by mouth 01/22/2023 Active sertraline (ZOLOFT) 50 MG tablet TAKE 1 TABLET BY MOUTH DAILY 02/20/2023 Active Social History Tobacco Use Types Packs/Day Years Used Date Smoking Tobacco: Never Smokeless Tobacco: Never Tobacco Cessation:Counseling Given: Not Answered Comments No Sex and Gender Information Value Date Recorded Sex Assigned at Not on file Legal Sex Female 10:50 AM EDT Gender Identity Not on file Sexual Orientation Not on file Last Filed Vital Signs Vital Sign Reading Time Taken Comments Blood Pressure 118/80 04/20/2023 3:23 PM EDT Pulse 81 04/20/2023 3:23 PM EDT Temperature 36.4 C (97.5 F) 04/20/2023 3:23 PM EDT Respiratory Rate 17 04/20/2023 3:23 PM EDT Oxygen Saturation 98% 04/20/2023 3:23 PM EDT Inhaled Oxygen Concentration - - Weight - - Height - - Body Mass Index - - Plan of Treatment Health Maintenance Due Date Last Done Comments Depression: Screening Annually using PHQ-2/9 in Adults 18 yrs or above (or HM Modifier)([facility]) 2019 Hepatitis C Virus Infection in Adolescents and Adults: Screening (or Modifier) ([facility]) 2019 SDOH Screening Reminder: Annually for all adults ([facility]) 2019 Tobacco Smoking Cessation: i n Adults excluding Women: Behavioral and Pharmacotherapy Interventions ([facility]) 2019 Cervical Cancer Screenin-65 yrs of age (or Modifier) 2022 Cervical Cancer Screening: Pap every 3 yrs pts age 21-65 2022 Cervical Cancer: Pap Screening with Modifier timing ([facility]) 2022 Cervical Cancer: hrHPV alone or with cotesting Pap for Pts 30-65yrs screening every 5yrs ([facility]) 2022 DTaP/Tdap/Td Vaccines ([facility]) (7 - Td or Tdap) 03/03/2023 03/03/2013, 04/01/2006, 10/07/2002, Additional history exists COVID-19 Vaccine Screening: Initial Series and Booster Status ([facility]) (2023- season) 2024 11/12/2020, 10/22/2020 Flu Vaccination: Yearly for ages 18mos through 64 years (or Modifier)([facility]) 03/10/2025 05/28/2019, 07/29/2018, 06/11/2017, Additional history exists Zoster/Shingles Vaccine Series Screening: Adults aged 18+ yrs (or HM Modifiers)([facility] ) (1 of 2) 2051 05/02/2008, 04/05/2002 Pneumococcal Vaccination Screening: Pts 0-19 & 19-49 yrs of age ([facility] ) Aged Out No longer eligible based on patient's age to complete this topic Medical Devices Not on file Insurance Care Teams Tenter Frame Operator Relationship Specialty Start Date End Date Pcp, No PCP - General Family Medicine 04/20/23
== END 2025-02-16 11:15 | disposition home or self-care (01) ==
PROVIDERS: Visit Provider Hospitalist
DX: G47.33 Obstructive sleep apnea (adult) (pediatric) (principal); R00.0 Tachycardia, unspecified; R06.09 Other forms of dyspnea
CPT/HCPCS: 99204